=== PATIENT | female | born 1980 | race Caucasian/White ===

== ENCOUNTER 2016-08-09 16:09 | Emergency (ER) | payer BC, OTHER ==
[2016-08-09 16:26] VITALS: BP 120/84
[2016-08-09] MEDS ORDERED: Diphtheria,Pertussis(Acell),Tetanus Vaccine 0.5 ML SDV IM ONE (17:52)
--- NOTE | 2016-08-09 17:57 | EDM.PDOC ---
ED HPI GENERAL MEDICAL PROBLEM - General Chief Complaint: Bite:Animal, Insect Stated Complaint: DOG BITE AT WORK Time Seen by Provider: 08/09/16 17:32 Source of Information: Reports: Patient History Limitations: Reports: No Limitations - History of Present Illness INITIAL COMMENTS - FREE TEXT/NARRATIVE: This patient was making a home visit to a client or patient when she opened the door the patient's 3 daughters rushed out and although the dogs are familiar with her one of them bit her on the left ankle. It didn't seem to be anything very serious that she came over to have it checked out. Her last tetanus was unknown. The local owner operator truck driver said the dogs haven't been vaccinated against rabies. - Related Data Allergies Allergy/AdvReac Type Severity Reaction Status Date / Time No Known Allergies Allergy Verified 06/09/13 07:12 Home Meds: Home Meds PNV95/Ferrous Fumarate/FA [ Multivitamins] 1 each PO DAILY 06/09/13 [ History] Polyethylene Glycol 3350 [MiraLAX] 17 gm PO DAILY 06/09/13 [History] Ibuprofen 600 mg PO Q6H #80 tablet 06/10/13 [Rx] Past Medical History - Past Health History Medical/Surgical History: Denies Medical/Surgical History Musculoskeletal History: Reports: Other (See Below) Other Musculoskeletal History: Left knee pain Social & Family History - Tobacco Use Smoking Status *Q: Current Every Day Smoker Years of Tobacco use: 15 Packs/Tins Daily: 0.5 Used Tobacco, but Quit: Yes Month Tobacco Last Used: 13 Second Hand Smoke Exposure: No - Caffeine Use Caffeine Use: Reports: Coffee - Recreational Drug Use Recreational Drug Use: No ED ROS GENERAL - Review of Systems Review Of Systems: ROS reveals no pertinent complaints other than HPI. ED EXAM, ANIMAL BITE - Physical Exam Exam: See Below Exam Limited By: No Limitations General Appearance: Alert, WD/WN, No Apparent Distress Extremities: Other (There is a single tooth rose to the lateral side of the left ankle does not appear to be deep.) Course - Vital Signs Last Recorded V/S: Last Vital Signs Temp 36.6 C 08/09/16 16:40 Pulse 65 08/09/16 16:40 Resp 16 08/09/16 16:40 BP 120/84 08/09/16 16:40 Pulse Ox 97 08/09/16 16:40 - Orders/Labs/Meds Orders: Active Orders 24 hr Category Date Time Status Vaccines to be Administered [RC] PER UNIT ROUTINE Care 08/09/16 17:52 Ordered Diphth,Pertuss(Acell),Tet Vac [Adacel] Med 08/09/16 17:52 Once 0.5 ml IM .ONCE ONE - Re-Assessments/Exams Free Text/Narrative Re-Assessment/Exam: 08/09/16 17:56 This wound doesn't need any special treatment will be just cleaned up. I don't think it even needs antibiotic ointment. Discussed this with the ER nursing center tutor and she said this doesn't need to be reported to law enforcement. Will have this lady talk with the local owner operator truck driver and they just need to keep an eye on the dog make sure the dog is healthy for the next 10 days if there are any questions about this then the dog will need to be evaluated the patient may need to go through the rabies series and she can contact her doctor for that the patient's comfortable with that. Patient received Adacel 0.5 mg IM. Departure - Departure Time of Disposition: 17:57 Disposition: Home, Self-Care 01 Condition: Fair Clinical Impression: Dog bite of ankle - Discharge Information Forms: ED Department Discharge Additional Instructions: The bite rose just needs local care just wash with soap and water it doesn't even need a Band-Aid or antibiotic ointment. There is very very low risk of rabies however the dog's should be observed for the next 10 days and ulnar can do that you just need to discuss that with the local owner operator truck driver. If the dog or dogs seem to be ill then they need to be evaluated and you will probably need to go ahead and have the rabies shots and should talk with your doctor about that. - My Orders Last 24 Hours: My Active Orders 08/09/16 17:52 Vaccines to be Administered [RC] PER UNIT ROUTINE Diphth,Pertuss(Acell),Tet Vac [Adacel] 0.5 ml IM .ONCE ONE - Assessment/Plan Last 24 Hours: My Active Orders 08/09/16 17:52 Vaccines to be Administered [RC] PER UNIT ROUTINE Diphth,Pertuss(Acell),Tet Vac [Adacel] 0.5 ml IM .ONCE ONE
== END 2016-08-09 18:07 | disposition home or self-care (01) ==
LOC: JP.ED 16:09
DX: S91.052A Open bite, left ankle, initial encounter (principal); F17.210 Nicotine dependence, cigarettes, uncomplicated; Z23 Encounter for immunization; Z79.899 Other long term (current) drug therapy; W54.0XXA Bitten by dog, initial encounter
CPT/HCPCS: 90471; 90715; 99283-25